=== PATIENT | male | born 1955 | race Caucasian/White ===

== ENCOUNTER 2017-08-15 09:07 | Emergency (ER) | payer OTHER ==
[~2017-08-15] VITALS: Ht 182.9 cm; Wt 86.1 kg
[~2017-08-15 09:07] MED LIST: APIX5TAB PO; ASPI-496 PO; ASPI-621 PO; ATOR80TA PO; LORA-446 PO; METO25TA35 PO; OMEP20TA62 PO; RIVA20TA PO; TICA90TA PO
[2017-08-15] MEDS ORDERED: TEST5GEL29 EXT (10:06)
[2017-08-15 10:14] LABS: BASOPHILS % (AUTO) 0 % (0-1); EOSINOPHILS # (AUTO) 0.08 x10^3/uL (0-0.4); EOSINOPHILS % (AUTO) 1 % (1-7); LYMPHOCYTES % (AUTO) 11 % (22-44); MD NO; MEAN CORPUSCULAR HEMOGLOBIN 27.2 pg (27.5-34.5); MEAN CORPUSCULAR HGB CONC 32.4 g/dL (33.2-36.2); MEAN CORPUSCULAR VOLUME 83.9 fL (81-97); MEAN PLATELET VOLUME 8.4 fL (7.4-10.4); MONOCYTES # (AUTO) 0.55 x10^3/uL (0.2-0.8); MONOCYTES % (AUTO) 8 % (2-9); NEUTROPHILS # (AUTO) 5.84 x10^3/uL (1.8-6.8); NEUTROPHILS % (AUTO) 80 % (42-75); PLATELET COUNT 291 x10^3/uL (130-400); RED BLOOD COUNT 4.87 x10^6/uL (4.38-5.82); RED CELL DISTRIBUTION WIDTH 16.9 % (9.4-14.8)
[2017-08-15 10:21] LABS: INTERNATIONAL NORMALIZED RATIO 1.11 (0.93-1.1); PROTHROMBIN TIME 11.4 Seconds (9.6-11.5)
[2017-08-15 10:24] LABS: ALBUMIN 3.1 g/dL (3.4-5.0); ANION GAP 6 mmol/L (5-15); CALCIUM 8.4 mg/dL (8.5-10.1); CHLORIDE 108 mmol/L (98-107)
[2017-08-15 10:27] LABS: CREATININE 1.65 mg/dL (0.7-1.3)
[2017-08-15 11:23] VITALS: BP 141/92
== END 2017-08-15 12:03 | disposition home or self-care (01) ==
LOC: ED 11:57
DX: S76.112A Strain of left quadriceps muscle, fascia and tendon, initial encounter (principal); I25.2 Old myocardial infarction; X58.XXXA Exposure to other specified factors, initial encounter; Y93.89 Activity, other specified; Y92.89 Other specified places as the place of occurrence of the external cause; Y99.2 Volunteer activity; Z86.73 Personal history of transient ischemic attack (TIA), and cerebral infarction without residual deficits
CPT/HCPCS: 36415; 80048; 82040; 85025; 85610; 85730; 99285

== ENCOUNTER → 2017-08-18 | Outpatient (CLI) | payer OTHER ==
[~2017-08-18] MED LIST changes: +TEST5GEL29 EXT
== END | disposition home or self-care (01) ==
LOC: CVU 15:33
PROVIDERS: ATTEND Nurse Practitioner Family
DX: I51.3 Intracardiac thrombosis, not elsewhere classified (principal); I10 Essential (primary) hypertension; I25.2 Old myocardial infarction; Z86.73 Personal history of transient ischemic attack (TIA), and cerebral infarction without residual deficits
CPT/HCPCS: 93306

== ENCOUNTER → 2018-11-13 | Outpatient (CLI) | payer OTHER ==
[~2018-11-13] MED LIST changes: -ASPI-621 PO; +ASPI81TA45 PO
== END | disposition home or self-care (01) ==
LOC: CFH 08:39
PROVIDERS: ATTEND Internal Medicine Cardiovascular Disease
DX: I08.8 Other rheumatic multiple valve diseases (principal); I63.9 Cerebral infarction, unspecified
CPT/HCPCS: 93306

== ENCOUNTER → 2020-05-08 | Outpatient (CLI) | payer OTHER | END | disposition home or self-care (01) | LOC: CFH 08:51 | PROVIDERS: ATTEND Internal Medicine Cardiovascular Disease | DX: I08.8 Other rheumatic multiple valve diseases (principal); I11.9 Hypertensive heart disease without heart failure; I63.9 Cerebral infarction, unspecified | CPT/HCPCS: 93306 ==